=== PATIENT | male | born 1955 | race Caucasian/White ===

== ENCOUNTER 2016-05-28 08:49 | Emergency (ER) | payer OTHER ==
[~2016-05-28] VITALS: Ht 172.7 cm; Wt 82.0 kg
[~2016-05-28 08:49] MED LIST: FLUT50DI; MECL-77; MELO-110
[2016-05-28 08:54] VITALS: Ht 172.7 cm; Wt 82.0 kg
[2016-05-28] MEDS ORDERED: ACETAMINOPHEN 500 MG TAB PO STA (09:13)
[2016-05-28] MEDS ORDERED: CEFTRIAXONE 1 GM INJ IM ONE (09:30)
[2016-05-28] MEDS ORDERED: LIDOCAINE 1% (MDV) 20 ML INJ SC ONE (09:30)
--- NOTE | 2016-05-28 09:55 | RADRPT ---
PROCEDURE: Chest Radiograph. CLINICAL INDICATION: Fever and cough. TECHNIQUE: Single frontal chest radiograph. COMPARISON: None available FINDINGS: The cardiomediastinal silhouette is within normal limits. There is a questionable right patchy medi al basilar infiltrate. Lungs are otherwise clear. No definite infiltrate or effusion is seen. Th e bones are intact. IMPRESSION: 1. Questionable right medial basilar infiltrate. 2. Otherwise unremarkable chest radiograph. RPTAT: KK .Dutch Olsen MD, MD Date Time Electronically viewed and signed by .Dutch Olsen MD, on 05/28/2016 09:55 .B/
[2016-05-28] MEDS ORDERED: IBUP-1542 PO (10:12)
[2016-05-28] MEDS ORDERED: PROM5SYR2 PO (10:12)
[2016-05-28] MEDS ORDERED: LEVO750T25 PO (10:12)
[2016-05-28] MEDS ORDERED: BENZ100C70 PO (10:12)
[2016-05-28] MEDS ORDERED: ACET325T33 PO (10:12)
[2016-05-28 10:19] VITALS: TEMP 100.6
--- NOTE | 2016-05-28 12:35 | ERD ---
DATE OF SERVICE: 05/28/2016 HISTORY OF PRESENT ILLNESS: The patient is a 61-year-old male coming in complaining of a sore throa t and fever with a productive cough for the last 5 days. Patient states that he has had diffuse bod y aches. He is having bloody sputum in his cough. He does not feel short of breath, but he states that it is a productive cough and it feels deep. He has taken DayQuil, took yesterday, nothing toda y. No recent travel. No abdominal pain, no vomiting, no sick contacts. MEDICAL PROBLEMS: Denies. ALLERGIES: DENIES. MEDICATIONS: Denies. PAST SURGICAL HISTORY: Denies. HOSPITALIZATIONS: Denies. SOCIAL HISTORY: Denies. REVIEW OF SYSTEMS: A 12-point review of systems was done. Refer to HPI for positives, all other sy stems negative. PHYSICAL EXAMINATION: VITAL SIGNS: Temperature is 102.2, pulse 94, blood pressure is 116/73, respiratory rate 20, O2 satu ration 95% on room air. Pain intensity 8/10. GENERAL: The patient is well-appearing, well-nourished, no acute distress. HEENT: Atraumatic. Conjunctivae are pink. Pupils equal, round, and reactive to light. There is no s cleral icterus. Tympanic membranes clear bilaterally. Oropharynx clear. No nystagmus or photophobia . NECK: C-spine is soft and supple. There is no meningismus. There is no cervical lymphadenopathy. No JVD. No bruits. No goiter. CHEST: The patient has rhonchi heard in the right lung field. Left lung field is within normal padilla its. There were no retractions, no wheezing. No audible stridor, no trismus or drooling. HEART: Regular rate and rhythm. No murmurs, clicks, rubs or gallops. No S3 or S4. ABDOMEN: Soft, nontender and nondistended. Good bowel sounds. No rebound or guarding. No gross jose tonitis. No gross organomegaly or masses. No Talley sign or McBurney point tenderness. BACK: No midline or flank tenderness. SKIN: There is no apparent rash or petechia. The skin is warm and dry. EMERGENCY ROOM COURSE: The patient had a 1-view chest x-ray done in the ER which showed questionabl e right medial basilar infiltrate, otherwise unremarkable chest radiograph. Patient had an influenz a swab performed in the ER which was negative A, negative B. The patient was given Tylenol in the ER and 1 gram Rocephin IM injection. DIAGNOSES: 1. Pneumonia. 2. Fever. MEDICAL DECISION MAKING: I have concern for possible pneumonia. There are focal rhonchi heard on a uscultation with possible infiltrate seen in the right middle lobe. I have low suspicion for respir atory distress or hypoxia, low suspicion for sepsis. Low suspicion for bacterial HEENT infection or meningitis. DISCHARGE: The patient is discharged stable. Patient given prescription for Levaquin and Motrin, p romethazine with codeine, Tessalon perles and Tylenol and told to follow up with primary care within 1 to 2 days for reevaluation. The patient was told if symptoms progress or worsen to return to the ER. All other questions answered at time of discharge. Discharge summary given at the time of dep arture. Patient understood and complied with plan. Dictated By: JL PHAN PA for PAPA MELENDEZ/FILIPE Conf#: [id number] DID#: [id number]
== END 2016-05-28 10:20 | disposition home or self-care (01) ==
LOC: FTE 08:49
DX: J18.9 Pneumonia, unspecified organism (principal); R50.9 Fever, unspecified
CPT/HCPCS: 71010; 87400; 96372; J0696; Z7502; Z7610

== ENCOUNTER 2016-06-05 07:56 | Day surgery (SDC) | payer OTHER ==
[~2016-06-05] VITALS: Ht 170.2 cm; Wt 79.8 kg
[~2016-06-05 07:56] MED LIST changes: +ACET325T33 PO; +BENZ100C70 PO; +IBUP-1542 PO; +LEVO750T25 PO; +PROM5SYR2 PO
[2016-06-05] MEDS ORDERED: LEVOTHYROXINE (08:38)
[2016-06-05 08:40] VITALS: Ht 170.2 cm; Wt 79.8 kg
[2016-06-05] MEDS ORDERED: LEVOFLOXACIN (08:45)
[2016-06-05 08:59] VITALS: BP 137/80; PULSE 67; RESP 18
[2016-06-05 09:22] VITALS: BP 119/87; PULSE 59; RESP 18
[2016-06-05] MEDS ORDERED: FENTAnyl 50 MCG/ML VIAL ONE (09:29)
[2016-06-05] MEDS ORDERED: MIDAZOLAM 1 MG/ML 2 ML INJ ONE ×2 (09:29)
[2016-06-05 09:47] VITALS: BP 102/79; RESP 18
--- NOTE | 2016-06-05 17:05 | GILP ---
DATE OF PROCEDURE: 06/05/2016 PREOPERATIVE DIAGNOSIS: Screening colonoscopy to rule out colon polyps. POSTOPERATIVE DIAGNOSES: 1. No polyps noted. 2. Occasional diverticula noted. 3. Minimal internal and external hemorrhoids were noted. DESCRIPTION OF PROCEDURE: After informed written consent was obtained, the patient was asked to lay in the left lateral side. Intravenous anesthesia was given, which included 3 mg Versed and 50 mcg of fentanyl. When the patient became somnolent, the Olympus video colonoscope was introduced into t he rectum and scope was advanced all the way to the cecum. The entire colon appeared perfectly norm al except diverticula noted to be scattered along the colon. They were few in number. There were s mall in size. No active bleeding noted. From the cecum, examination again was carried out. No additional abnormalities detected. On retrof lexion, minimal internal hemorrhoids were noted which is small, grade 1. No bleeding noted. On the way out, no abnormalities detected and the procedure was terminated. PLAN: Recommend repeat colonoscopy in 10 years. Dictated By: VINCE GARCIA/FILIPE Conf#: [id number] DID#: [id number] CC: Unknown Heath;*EndCC*
== END 2016-06-05 10:10 | disposition home or self-care (01) ==
LOC: GIL 07:56
PROVIDERS: ATTEND Internal Medicine Gastroenterology
DX: Z12.11 Encounter for screening for malignant neoplasm of colon (principal); K64.8 Other hemorrhoids; K64.4 Residual hemorrhoidal skin tags; K57.90 Diverticulosis of intestine, part unspecified, without perforation or abscess without bleeding
CPT/HCPCS: 45378; J2250; J3010; Z7610

== ENCOUNTER 2018-04-04 15:23 | Emergency (ER) | END 2018-04-04 19:22 | disposition home or self-care (01) ==